=== PATIENT | female | born 1965 | race Caucasian/White ===

== ENCOUNTER 2018-02-13 13:30 | Outpatient (RCR) | payer MEDICAID, SELFPAY ==
--- NOTE | 2017-11-22 14:55 | HP.PTEVAL_ITS ---
Patient's Visit Information DESTINEE MORENO is a 52 year old F referred to Physical Therapy by MD LEONORA Willard with a diagnosis of R UE weakness and instability.. Date of Evaluation: 11/22/17 Physical Therapist: WANDY ReyesT, OC - Visit Plan Frequency: 2x /Week Duration: 4-6 Weeks Plan: 2x/week for 4-8 weeks. 1. Balance with gait including bend and recover, VOR standing to ambulation, foam, narrow GERONIMO adn ec balance ex. Pt balance very poor and will need full spot during these activities. Please include LE and postural/ UE strength in treatment. strength in treatment. - Subjective Subjective: Trouble walking, sometimes walks crooked into a wall. has MS and has had therapy in [place]. Bending and recovering makes her unsteady. Been that way for years. Moved to [place] a year ago upon getting . Falls intermittently two times last month. Gets unsteady without spinning and falls. Was walking on slope both times.Feels unsteady at home in the dark but not in the light. Fatigue makes it worse. Also has R arm weakness and had nerve test which was normal. Reaching up to get bowl down and nearly dropped it. Is R handed.Gets numbness in R distal arm interittently and both legs and feet. Sleep is OK. Does not work, is on disability from MS. Anxiety and depression also. Exercises: has started 3# hand weight and stationary pedal bike. Dresses and cooks and cleans without incident but avoids step stools and balance worse when tired. Enjoys french whcih she can do but arm bothers her if she does too much. - Pain R arm pain Pain Intensity (Out of 10): 0 Pain Intensity Range: 0, 4 - Objective Pt has flat affect and stoic. Ambulates I on firm flat surface back to PT slowly. Trasnfers to and fro sit I but needs UE to avoid falling back into chair. Supine to sit I. Steps require rail and can be done reciprocally. VOR is challenging sitting and standing and cannot walk and do it, eyes come off target. Romberg stance is hard for more than 8 sec, not able EC and foam NT today. Strength LE is cogwheel at knees ext 3+, knee flexion weak at 3/5, hips 3+ flexion and ankles 4-. AROM LE WFL, HS and gastroc and hip flexors mod tight. reflexes LE 2/3 patella and achilles. Sensation WNL to gross light touch in LE adn UE. Coordination to reciprocal tapping is very poor. UE strength is symmetrical and withour myuotomal abnormalities at 3+. bi and tri reflexes 2/3. AROM UE WFL. Unable to bend BW without falling over, bending forward and also fall forward. - Balance Scores Functional Gait Assessment Score: 14 % Disability: 53.3400 - Goals Goal 1:: FGA balance to minimize fall risk. Goal Time Frame: 4-6 Weeks Goal 2:: Strength 4- in LE and I approp HEP Goal Time Frame: 4-6 Weeks Goal 3:: bend backwards adn forward without falling over. Goal Time Frame: 4-6 Weeks - Rehabilitation Potential Physical Therapy Diagnosis: Imbalanced and weak Rehabilitation Potential: Fair - Anticipated Interventions Patient/Client Instruction: Educate patient on: Condition, Plan of Care For the Purpose of:: To improve balance, To improve safety Therapeutic Exercise to Include: Strength training, Balance training For the Purpose of:: To improve muscle performance and motor function, To improve balance, To improve safety Thank you for the opportunity to evaluate your patient. For Medicare and Medicare HMO plans, please review the plan of care and approve it. It will need to be FAXED BACK to us at [phone] for Medicare purposes. Please let me know if there are questions or concerns regarding this plan of care. Physician Signature: Date:
--- NOTE | 2017-12-20 15:27 | HP.PTREVAL_ITS ---
Chaz Milian MD, JBJEAN CARLOS It has been my pleasure to treat DESTINEE MORENO over the last 10 visits for R UE weakness and instability.. Please see the progress note below for an update on the physical therapy plan of care! Subjective: Getting better. A little stronger. Balance is still a little shaky. No falls lately. Fels like she can work on things at home. Bending down to get something is still feeling like she will fall but she does this and has not fallen. To Dr. Milian will call to set up. Uses cane when she feels like she might stumble, 50% of time. Does grab [place] otherwise or use . Objective/Function: Bending BW causes patient to stumble backwards, bending forwards is safer but slow and needs CGA. Vor is not happening, pt unable to turn head with eyes on target especially worse to the L. Out of chair without using UE easily. Steps reciprocal with one rail. FGA 2 point IMPROVED. FUNCTIONAL STRENGTH IMPROVING, BALANCE STILL QUESTIONABLE AT BEST. oCULOMOTOR DEFICITS ARE OBVIOUS AND NEED WORKED ON. Plan Plan: PT FINALLY AGREEABLE TO CONTINUING WEEKLY TO [place] ON ADAPTATION AND HABITUATION/BALANCE EX VIA HEP. WILL CONTINUE STRENGTH AT HOME. NEXT VISIT CHECK VOR AND ADD COUNTER TOP HEAD BENDING TO HEP, MAY NEED TO CHECK MSQ. Goals Goal 1:: FGA balance to minimize fall risk. Goal Time Frame: 4-6 Weeks Goal Progress: Progressing Goal 2:: Strength 4- in LE and I approp HEP Goal Time Frame: 4-6 Weeks Goal Progress: Goal Met Goal 3:: bend backwards adn forward without falling over. Goal Time Frame: 4-6 Weeks Goal Progress: Progressing Goal 4:: VOR 60 seconds without deficits. Goal Time Frame: 2-4 Weeks Goal Progress: NEW GOAL Anticipated Interventions Patient/Client Instruction: Educate patient on: Condition, Plan of Care For the Purpose of:: To improve balance, To improve safety Therapeutic Exercise to Include: Strength training, Balance training For the Purpose of:: To improve muscle performance and motor function, To improve balance, To improve safety Please do not hesitate to contact me at [phone] by phone or Fax: if you have questions or concerns regarding this new plan of care! Sincerely, Anam Noonan, DPT, OC
--- NOTE | 2018-01-16 12:01 | HP.PTREVAL_ITS ---
Chaz Milian MD, It has been my pleasure to treat DESTINEE MORENO over the last 14 visits for R UE weakness and instability.. Please see the progress note below for an update on the physical therapy plan of care! Subjective: Not feeling dizzy. Doing OK overall but eyes closed is tough. Using cane 100%(push cart in store). Objective/Function: Much imporved(+7) FGA) Still challenging to walk with VOR as she veers quickly. VOR standing taught to patient for HEP by counter only. looks up and bends over without losing balacne today. Bending backwards still a challenge baalnce christian. Up and down VOR still more challenging then horiz. Plan Plan: weekly for VOR and ec walking chalolenges and EIS for balance. Goals Goal 1:: FGA balance to minimize fall risk. Goal Time Frame: 4-6 Weeks Goal Progress: Goal Met Goal 2:: Strength 4- in LE and I approp HEP Goal Time Frame: 4-6 Weeks Goal Progress: Goal Met Goal 3:: bend backwards adn forward without falling over. Goal Time Frame: 4-6 Weeks Goal Progress: Goal Met Goal 4:: VOR 60 seconds without deficits. Goal Time Frame: 2-4 Weeks Goal Progress: Goal Met Goal 5:: Walk VOR without wobbly and 25/30 FGA Goal Time Frame: 2-4 Weeks Goal Progress: NEW GOAL Goal 6:: Bend backwards without losing balance Goal Time Frame: 2-4 Weeks Goal Progress: NEW GOAL Anticipated Interventions Patient/Client Instruction: Educate patient on: Condition, Plan of Care For the Purpose of:: To improve balance, To improve safety Therapeutic Exercise to Include: Strength training, Balance training For the Purpose of:: To improve muscle performance and motor function, To improve balance, To improve safety Please do not hesitate to contact me at [phone] by phone or Fax: if you have questions or concerns regarding this new plan of care! Sincerely, Anam Noonan, DPT, OC
--- NOTE | 2018-02-13 13:45 | HP.PTDCSUM_ITS ---
HP - PT D/C Summary It has been my pleasure to treat DESTINEE MORENO under orders from Chaz Milian MD, for the diagnosis of R UE weakness and instability. for a total of 17 visit( s). Discharge Date: 02/13/18 Please see the following information for a summary of their discharge status. - Subjective Subjective: Doing well, ready to be done. Bending BW can still be a problem but everything else feels OK. Looking up and bending over are much better. Gets uneasy looking up. Walking dog at times without cane, But i should use it. Needs cane to walk on grass. HEP going OK. To doctor in April. Ready to be done. No spinning. - Pain R arm pain Pain Intensity (Out of 10): 0 - Overall Improvement % Improvement: 70 - Objective Objective/Function: +4 FGA from last test adn +13 overall. Significantly improved balance. Looks up and bends over without LOB today, stilll LOB with BW bending. still recommended compliance with cane due to MS and some inconsistency with testing btu overall much better and recommeneded continuing HEP for strength as she has been noncompliant lately. - Goals Goal 1:: FGA balance to minimize fall risk. Goal Progress: Goal Met Goal 2:: Strength 4- in LE and I approp HEP Goal Progress: Goal Met Goal 3:: bend backwards adn forward without falling over. Goal Progress: Goal Met Goal 4:: VOR 60 seconds without deficits. Goal Progress: Goal Met Goal 5:: Walk VOR without wobbly and 25/30 FGA Goal Progress: Goal Met Goal 6:: Bend backwards without losing balance Goal Progress: not yet. - Plan Plan: D/C to HEP - D/C Information Discharge Comments: Pt doing well and surpassed improvement expectations. Still recommended use of cane for safety. Pt to try and continue HEP. If there are questions or concerns regarding this patient's physical therapy, please feel free to call me at [phone]. Thank you for the referral of this patient. Sincerely, Anam Noonan, DPT, OC
== END 2018-02-13 19:00 | disposition home or self-care (01) ==
LOC: PT 13:30
PROVIDERS: Visit Provider Psychiatry & Neurology Neurology
DX: G35 Multiple sclerosis (principal); R26.81 Unsteadiness on feet; M62.81 Muscle weakness (generalized); R20.0 Anesthesia of skin
CPT/HCPCS: 97110; 97116; 97162; 97530

== ENCOUNTER 2022-06-27 20:31 | Emergency (ER) | payer MEDICARE, SELFPAY ==
[2022-06-27 20:32] VITALS: BP 130/65; PULSE 66; RESP 18; TEMP 36.7; O2SAT 98; BMI 36.8
[2022-06-27 22:47] VITALS: BP 134/60; PULSE 61; RESP 18; TEMP 37.1; O2SAT 100
--- NOTE | 2022-06-27 23:06 | RAD_ITS ---
INDICATION: cough EXAMINATION/TECHNIQUE: X-RAY - XR Chest 1 View COMPARISON: February 01, 2017. FINDINGS: LINES/DEVICES: None. LUNGS: No consolidation, edema or effusion. No pneumothorax. MEDIASTINUM AND CARDIOVASCULAR STRUCTURES: Cardiac silhouette not enlarged. Mild aortic atherosclerosis. BONES AND SOFT TISSUES: Unremarkable. RAD/Chest 1 View (Portable) IMPRESSION: No radiographic evidence of acute cardiopulmonary disease. Electronically Signed: Lobito Marquez MD at 23:27 EDT ,
--- NOTE | 2022-06-27 23:19 | EKG12_ITS ---
Test Reason : CP Blood Pressure : / mmHG Vent. Rate : 064 BPM Atrial Rate : 064 BPM P-R Int : 160 ms QRS Dur : 102 ms QT Int : 424 ms P-R-T Axes : 022 012 026 degrees QTc Int : 437 ms Normal sinus rhythm Left ventricular hypertrophy with repolarization abnormality Abnormal ECG Confirmed by JOSE EDUARDO TENA, ANTHONY ([id number]), image editor DUSTIN TOMAS ([id number]) on 06/29/2022 11:54:24 AM Referred By: PL Confirmed By:DAYAN WHITT MD
[2022-06-27] MEDS: 0.9% Normal Saline 1,000 ML 999 ML IV (23:28)
[2022-06-27] MEDS: Ondansetron 4 MG/2 ML Vial IV (23:28)
[2022-06-27] MEDS: dexAMETHasone 10 MG/ML Vial IV (23:28)
[2022-06-27 23:38] LABS: Absolute Lymphocyte Count 1.12 X10^3/uL (0.83-4.51); Absolute Neutrophil Count 3.4 X10^3/uL (2.0-7.7); Basophil# 0.03 X10^3/uL; Basophil% 0.5 % (0-1); Eosinophil# 0.01 X10^3/uL; Eosinophils% 0.2 % (0-5); Hematocrit 34.3 % (37-47); Lymphocyte # 1.12 X10^3/ul (0.83-4.51); Lymphocyte % 17.9 % (19-41); Mean Corpuscular Hgb 32.4 pg (27.0-32.0); Mean Corpuscular Volume 92.7 fL (81-99); Mean Platelet Vol. 9.3 fl (6.2-12.0); Monocyte# 1.65 X10^3/uL; Monocyte% 26.4 % (0-10); NRBC Flagged by Analyzer 0 % (0-5); Neutrophil # 3.38 X10^3/uL (2.7-7.7); Neutrophil % 53.9 % (47-70); POSITIVE DIFFERENTIAL YES; Platelet Count 195 K/mm3 (150-450); RBC Distribution Width CV 11.9 % (11.6-14.6); RBC Distribution Width SD 40.6 fl (35.1-43.9); White Blood Count 6.3 K/mm3 (4.4-11.0)
[2022-06-27 23:40] LABS: Differential Indicated SCAN CRITERIA MET
[2022-06-27 23:54] LABS: Anion Gap 9 (5-15); BUN 10 mg/dL (7-18); BUN/Creat Ratio 13.3 RATIO (10-20); Calcium,Total 9.1 mg/dL (8.5-10.1); Chloride 82 mmol/L (98-107); Creatinine, Serum 0.75 mg/dL (0.55-1.02); EST Glomerular Filtration Rate 84 mL/min (>60); Est Glom Filt Rate - Afr Amer 102 mL/min (>60); Estimated Creatinine Clearance 62.45 ml/min; Glucose 82 mg/dL (74-106); Magnesium 1.7 mg/dL (1.6-2.6); Potassium 3.5 mmol/L (3.5-5.1); Sodium Level 121 mmol/L (136-145)
[2022-06-28 00:13] VITALS: BP 126/66; PULSE 61; O2SAT 96
[2022-06-28] MEDS: Ketorolac 30 MG/ML Syringe IV (00:50)
[2022-06-28 01:13] VITALS: BP 134/67; PULSE 67; RESP 18; O2SAT 100
--- NOTE | 2022-06-28 01:13 | EDS_ITS ---
HPI History of Present Illness Chief Complaint: General Illness Narrative Narrative: Patient is a 57-year-old female with past medical history of MS. she states that over the past 2 to 3 days she has developed headache with mild cough subjective fevers and chills myalgias and nausea. She states she took a home COVID test and it was positive. She denies any chest pain or shortness of breath with her history of MS and constellation of symptoms she was concerned and therefore comes in for evaluation [facility] Medical History (Updated 06/28/22 @ 01:[address] Miguel Arguello, DO) Anxiety Depression GERD (gastroesophageal reflux disease) Hypertension Migraines Home Medications Omeprazole [Prilosec] 40 mg PO DAILY 02/01/17 [History Last Taken Unknown] bupropion HCl 100 mg tablet 100 mg PO DAILY 02/01/17 [History Last Taken Unknown] clonazepam 0.5 mg tablet 1 mg PO QHS PRN PRN Anxiety 02/01/17 [History Last Taken Unknown] dimethyl fumarate 240 mg capsule,delayed release (Tecfidera) 240 mg PO DAILY 02/01/17 [History Last Taken Unknown] gabapentin 100 mg capsule (Neurontin) 100 mg PO BID 02/01/17 [History Last Taken Unknown] gabapentin 300 mg capsule 300 mg PO QHS 02/01/17 [History Last Taken Unknown] lisinopril 30 mg tablet (Zestril) 30 mg PO DAILY 02/01/17 [History Last Taken Unknown] metoprolol tartrate 50 mg tablet 50 mg PO BID 02/01/17 [History Last Taken Unknown] tamsulosin 0.4 mg capsule 0.4 mg PO DAILY 02/01/17 [History Last Taken Unknown] trazodone 100 mg tablet 100 mg PO QHS 02/01/17 [History Last Taken Unknown] venlafaxine 150 mg tablet,extended release 24 hr 150 mg PO DAILY 02/01/17 [History Last Taken Unknown] nirmatrelvir 300 mg (150 mg x2)-ritonavir 100 mg tablet,dose pack(EUA) (Paxlovid) See Rx Instructions PO .COMPLEX #30 tabs 06/28/22 [Rx Last Taken Unknown] ondansetron 4 mg disintegrating tablet 4 mg PO TID PRN nausea and vomiting #21 tabs 06/28/22 [Rx Last Taken Unknown] promethazine 6.25 mg-codeine 10 mg/5 mL syrup 5 ml PO 4X/DAY PRN PRN cough 7 days #140 mL 06/28/22 [Rx Last Taken Unknown] Allergy/AdvReac Type Severity Reaction Status Date / Time cephalexin [From Keflex] Allergy Itching Verified 02/04/17 10:29 Surgical History (Updated 06/27/22 @ 22:45 by Lucrecia Syed Self) History of cholecystectomy Social History Smoking Status: Never smoker ROS ROS ED Constitutional Constitutional ED: Reports chills, fever(s) and subjective ENT ENT ED: Reports rhinorrhea and sore throat Cardiovascular Cardiovascular: Denies chest pain Respiratory/Chest Respiratory/Chest: Reports cough; Denies dyspnea Gastrointestinal Gastrointestinal: Reports nausea; Denies abdominal pain, diarrhea or vomiting Genitourinary Genitourinary ED: Denies dysuria Musculoskeletal Musculoskeletal: Reports myalgias Integumentary Denies rash Neurologic Neurologic: Reports headache(s) Hematologic/Lymphatic Hematologic/Lymphatic: Denies easy bleeding or easy bruising EXAM Physical Exam Const Vital Signs: 06/27/22 20:32 06/27/22 22:45 06/27/22 22:47 Temperature 98.1 F 98.7 F Temperature Source Temporal Oral Pulse Rate 66 61 Respiratory Rate 18 18 Respiratory Effort Normal Non-Labored Respiratory Pattern Normal Blood Pressure 130/65 H 134/60 H Blood Pressure Mean 86 84 Pulse Ox 98 100 Oxygen Delivery Method Room Air Room Air 06/28/22 00:13 06/28/22 01:13 Temperature Temperature Source Pulse Rate 61 67 Respiratory Rate 18 Respiratory Effort Respiratory Pattern Blood Pressure 126/66 H 134/67 H Blood Pressure Mean 86 89 Pulse Ox 96 100 Oxygen Delivery Method Room Air Room Air Positive well nourished, well developed and obese General Appearance ED: well developed Nutritional Appearance: obese HEENT Reports dry mucous membranes HEENT Narrative: Cobblestoning the posterior pharynx consistent with sinus drainage but no airway edema or compromise Mouth ED: Yes dry mucous membranes Mouth: dry mucous membranes Eyes PERRL and EOMs intact bilaterally Neck supple and no JVD Neck Narrative: Positive anterior cervical lymphadenopathy Resp normal respiratory effort and clear to auscultation bilaterally Resp Narrative: Breath sounds are diminished throughout but overall clear to auscultation without signs of respiratory distress Cardio regular rate and regular rhythm Rate: other Other Details: Radial pulses are +2-4 bilaterally are equal and symmetric GI non-tender and non-distended GI Narrative: No voluntary guarding or rigidity no pulsatile mass Auscultation: hyperactive bowel sounds Palpation: soft Extremity normal to inspection Extremity Narrative: No asymmetric edema no pitting edema negative Homans' sign bilaterally Neuro oriented x3 and CN's II-XII intact bilaterally Sensorium / Orientation: alert Psych Psych Narrative: Patient has a flat affect Skin no rashes or lesions noted Skin Narrative: Skin turgor slightly increased MDM MDM MDM Narrative Medical decision making narrative: Patient presented to the ER afebrile and satting in the high 90s on room air with no signs of distress. Her constellation of symptoms is consistent with her reported COVID diagnosis. As she has had bouts of nausea with poor oral intake basic labs were obtained and a chest x-ray was ordered as well. Labs show hyponatremia with a sodium of 121 but otherwise stable electrolytes and normal kidney function. Chest x-ray revealed no acute lung pathology with correlates with her physical exam and stable pulse ox. Patient was given Decadron and a liter of fluid and Zofran and had no bouts of vomiting while in the ER. Her vitals remained stable and on reevaluation she is resting comfortably and remains in no acute respiratory distress. Therefore at this time she is not hypoxic or requiring supplemental oxygen she does have hyponatremia but she has had this replaced with a liter of fluid and therefore do not feel there is need for admission secondary to this. Patient will be started on cough suppressant medication as well as Paxlovid secondary to COVID diagnosis but as she is not hypoxic or showing signs of acute kidney injury she is otherwise safe for discharge Lab Data Attestation: I reviewed the patient's lab results. Labs: Laboratory Results - last 24 hr 06/27/22 06/27/22 23:31 23:31 WBC 6.3 RBC 3.70 L Hgb 12.0 Hct 34.3 L MCV 92.7 MCH 32.4 H MCHC 35.0 RDW Std Deviation 40.6 RDW Coeff of Sia 11.9 Plt Count 195 MPV 9.3 Immature Gran % (Auto) 1.100 H Neut % (Auto) 53.9 Lymph % (Auto) 17.9 L [place] % (Auto) 26.4 H Eos % (Auto) 0.2 Baso % (Auto) 0.5 Absolute Neuts (auto) 3.4 Absolute Lymphs (auto) 1.12 Nucleated RBC % 0 Sodium 121 L Potassium 3.5 Chloride 82 L Carbon Dioxide 30.0 Anion Gap 9 BUN 10 Creatinine 0.75 Estim Creat Clear Calc 62.45 Est GFR (MDRD) Af Amer 102 Est GFR (MDRD) Non-Af 84 BUN/Creatinine Ratio 13.3 Glucose 82 Calcium 9.1 Magnesium 1.7 Radiography Diagnostic Testing: Clinical Impression(s) from Imaging Studies Chest X-Ray 06/27/22 23:06 IMPRESSION: No radiographic evidence of acute cardiopulmonary disease. Electronically Signed: Lobito Marquez MD at 23:27 EDT , 1 view chest x-ray as interpreted by the emergency medicine physician reveals no acute infiltrate pneumothorax or pleural effusion Discharge Plan Triage Chief Complaint: General Illness ED Provider: Miguel Arguello Dx/Rx/DC Orders Clinical Impression: COVID-19, Dehydration with hyponatremia Instructions: Coronavirus Disease 2019 (COVID-19): Caring for Yourself or Others, Dehydration Prescriptions: New Paxlovid (EUA) 300 mg (150 mg x 2)-100 mg tablets,dose pack See Rx Instructions .ROUTE .COMPLEX Qty: 30 0RF Rx Instructions: take TWO 150 mg tablets of nirmatrelvir with ONE 100 mg tablet of ritonavir twice daily for 5 days ondansetron 4 mg tablet,disintegrating 4 mg PO TID PRN (Reason: nausea and vomiting) Qty: 21 0RF promethazine-codeine 6.25-10 mg/5 mL syrup 5 ml PO 4X/DAY PRN PRN (Reason: cough) 7 Days Qty: 140 0RF No Action clonazepam 0.5 MG tablet 1 mg PO QHS PRN PRN (Reason: Anxiety) bupropion HCl 100 MG tablet 100 mg PO DAILY tamsulosin 0.4 MG capsule 0.4 mg PO DAILY trazodone 100 MG tablet 100 mg PO QHS metoprolol tartrate 50 MG tablet 50 mg PO BID lisinopril [Zestril] 30 MG tablet 30 mg PO DAILY gabapentin 300 MG capsule 300 mg PO QHS gabapentin [Neurontin] 100 MG capsule 100 mg PO BID venlafaxine 150 MG tablet extended release 24hr 150 mg PO DAILY dimethyl fumarate [Tecfidera] 240 MG capsule,delayed release(DR/EC) 240 mg PO DAILY Omeprazole [Prilosec] 40 MG capsule 40 mg PO DAILY Primary Care Provider: Zainab Zazueta Referrals: Zainab Zazueta, [Primary Care Provider] - Activity Restrictions/Additional Instructions: Please keep yourself well-hydrated and take your medications as directed to help control your symptoms. Please return to the ER should you have any further concerns Disposition Disposition: Home, Self Care Discharge Date/Time: 06/28/22 01:20
== END 2022-06-28 01:20 | disposition home or self-care (01) ==
PROVIDERS: Emergency Provider Emergency Medicine; Visit Provider Emergency Medicine
DX: U07.1 COVID-19 (principal); G35 Multiple sclerosis; E86.0 Dehydration; I10 Essential (primary) hypertension; E87.1 Hypo-osmolality and hyponatremia; G43.909 Migraine, unspecified, not intractable, without status migrainosus; K21.9 Gastro-esophageal reflux disease without esophagitis; F32.A Depression, unspecified; F41.9 Anxiety disorder, unspecified; E66.9 Obesity, unspecified; Z79.899 Other long term (current) drug therapy
CPT/HCPCS: 71045; 80048; 83735; 85025; 93005; 96361; 96374; 96375; 99283; J7030; A4216; J2405

== ENCOUNTER 2022-07-05 16:36 | Emergency (ER) | payer MEDICARE, SELFPAY ==
[2022-07-05 16:36] VITALS: BP 105/54; PULSE 64; RESP 18; TEMP 36.4; O2SAT 100; BMI 35.6
--- NOTE | 2022-07-05 17:32 | ED.RN ---
PATIENT UP TO TRIAGE DESK AND STATES SHE IS NOT GOING TO WAIT TO BE SEEN. PATIENT STATES SHE WILL CONTINUE TO TRY AND URINATE AND RETURN IF SHE IS UNABLE TO LATER.
== END 2022-07-05 17:25 | disposition left against medical advice (07) ==
LOC: ED 17:38
DX: R33.9 Retention of urine, unspecified (principal); Z53.21 Procedure and treatment not carried out due to patient leaving prior to being seen by health care provider
CPT/HCPCS: 99281

== ENCOUNTER → 2024-02-05 | Outpatient (CLI) | payer MEDICARE, SELFPAY ==
--- NOTE | 2024-02-05 13:41 | NEURO ---
NCS and/or EMG Patient Report Ordering Doctor: Enrrique Langston DATE OF SERVICE: 02/05/24 Kisha presents for electrodiagnostic testing of the lower limbs. She has complaints of bilateral foot pain and intermittent numbness. Electrodiagnostic findings: Right median motor nerve demonstrates normal distal latency, amplitude and conduction velocity. No significant drop in conduction is noted across the fibular head. Right tibial motor nerve demonstrates normal distal latency amplitude and conduction velocity. F waves and H-reflexes are noted. There is prolonged right sural latency. Normal right superficial peroneal and right medial plantar responses. Needle EMG testing was performed in the right lower limb. All muscles tested showed no evidence of denervation with normal motor unit action potentials. The patient refused testing of the left lower limb due to discomfort related to the test. Electrodiagnostic impression: This is an abnormal study in the right lower limb. 1. 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 Would recommend future correlation with the left lower limb to better evaluate for peripheral polyneuropathy. 2. No electrodiagnostic evidence is noted for lumbosacral radiculopathy, as it pertains to the right side. Multi Select Codes Neurology Neurology Interp Codes: 70089-43 Musc test done w/n test comp (interp) and 98514-95 Nrv cndj test 7-8 studies (interp)
== END | disposition home or self-care (01) ==
PROVIDERS: Referring Provider Podiatrist; Visit Provider Podiatrist
DX: R20.2 Paresthesia of skin (principal)
CPT/HCPCS: 95886; 95910

== ENCOUNTER → 2024-02-11 | Outpatient (CLI) | payer MEDICARE, SELFPAY ==
--- NOTE | 2024-02-11 12:18 | RAD_ITS ---
INDICATION: R20.2 EXAMINATION/TECHNIQUE: X-RAY - XR Spine Lumbar Min 4 Views COMPARISON: No relevant prior comparison study available FINDINGS: VERTEBRAE: Preserved vertebral body height. No fracture. No spondylolisthesis. Preservation of the normal lumbar lordosis. No significant facet arthropathy. DISCS: Disc spaces are maintained. Mild endplate osteophytes throughout the lumbar spine. INCLUDED ABDOMEN: Included bowel gas pattern is non-obstructive. RAD/L/S Spine Min 4 Views IMPRESSION: No evidence of lumbar spinal fracture or spondylolisthesis. Mild degenerative changes. Electronically Signed: Andrez Hubbard MD at 13:23 EDT ,
== END | disposition home or self-care (01) ==
LOC: RAD 12:12
PROVIDERS: Referring Provider Podiatrist; Visit Provider Podiatrist
DX: R20.2 Paresthesia of skin (principal)
CPT/HCPCS: 72110

== ENCOUNTER 2025-01-07 14:02 | Emergency (ER) | payer MEDICARE, SELFPAY ==
[2025-01-07 14:04] VITALS: BP 129/63; PULSE 68; RESP 15; TEMP 36.8; O2SAT 98; BMI 34.9
--- NOTE | 2025-01-07 14:24 | EDS_ITS ---
HPI History of Present Illness Chief Complaint: Cold Sx Informant: patient Onset/Context/Timing Onset: Days Context: Gradual Onset Timing: Continuous Quality: Cannot catch my breath Location: Chest Worsened by: Exertion Relieved by: Rest Narrative Narrative: Patient presents with shortness of breath that has been doing worse over the past several days. Patient states it is gradually getting worse. Patient states she feels like she cannot catch her breath. Patient states her breathing is worse with any exertion. Patient states it is better with rest. Patient states she took a home COVID-19 test today and it was positive. Patient admits to some rhinorrhea and sore throat. Patient admits to a cough but denies any sputum production. Patient also admits to some diarrhea. Patient denies any fevers or chills. Patient denies any chest pain. [facility] Medical History (Updated 01/07/25 @ 16:[address] Anam Gardner, DO) Multiple sclerosis Anxiety Depression GERD (gastroesophageal reflux disease) Hypertension Migraines Home Medications ?Medication ?Instructions ?Recorded ?Last Taken ?Type Omeprazole [Prilosec] 40 mg PO DAILY 02/01/17 Unkn own History bupropion HCl 100 mg tablet 100 mg PO DAILY 02/01/17 U nknown History clonazepam 0.5 mg tablet 1 mg PO QHS PRN PRN Anxiety 02/01/17 Unknown History dimethyl fumarate 240 mg 240 mg PO DAILY 02/01/17 Unk nown History capsule,delayed release (Tecfidera) gabapentin 100 mg capsule 100 mg PO BID 02/01/17 Unkno wn History (Neurontin) gabapentin 300 mg capsule 300 mg PO QHS 02/01/17 Unkno wn History lisinopril 30 mg tablet (Zestril) 30 mg PO DAILY 02/01 Unknown History metoprolol tartrate 50 mg tablet 50 mg PO BID 02/01/17 Unknown History tamsulosin 0.4 mg capsule 0.4 mg PO DAILY 02/01/17 Unk nown History trazodone 100 mg tablet 100 mg PO QHS 02/01/17 Unkno wn History venlafaxine 150 mg tablet,extended 150 mg PO DAILY Unknown History release 24 hr ondansetron 4 mg disintegrating 4 mg PO TID PRN nausea and 06/28/22 Unknown Rx tablet vomiting #21 tabs promethazine 6.25 mg-codeine 10 5 ml PO 4X/DAY PRN PRN cough 7 06/28/22 Unknown Rx mg/5 mL syrup days #140 mL nirmatrelvir 300 mg (150 mg See Rx Instructions PO .[place] MPLEX 01/07/25 Unknown Rx x2)-ritonavir 100 mg tablet,dose #30 tabs
--- NOTE | 2025-01-07 14:24 | EX.ED.DYSGE1 ---
HPI History of Present Illness Chief Complaint: Cold Sx Informant: patient Onset/Context/Timing Onset: Days Context: Gradual Onset Timing: Continuous Quality: Cannot catch my breath Location: Chest Worsened by: Exertion Relieved by: Rest Narrative Narrative: Patient presents with shortness of breath that has been doing worse over the past several days. Patient states it is gradually getting worse. Patient states she feels like she cannot catch her breath. Patient states her breathing is worse with any exertion. Patient states it is better with rest. Patient states she took a home COVID-19 test today and it was positive. Patient admits to some rhinorrhea and sore throat. Patient admits to a cough but denies any sputum production. Patient also admits to some diarrhea. Patient denies any fevers or chills. Patient denies any chest pain. [facility] Medical History (Updated 01/07/25 @ 16:[address] Anam Gardner, DO) Multiple sclerosis Anxiety Depression GERD (gastroesophageal reflux disease) Hypertension Migraines Home Medications ?Medication ?Instructions ?Recorded ?Last Taken ?Type Omeprazole [Prilosec] 40 mg PO DAILY 02/01/17 Unknown History bupropion HCl 100 mg tablet 100 mg PO DAILY 02/01/17 Unknown History clonazepam 0.5 mg tablet 1 mg PO QHS PRN PRN Anxiety 02/01/17 Unknown History dimethyl fumarate 240 mg 240 mg PO DAILY 02/01/17 Unknown History capsule,delayed release (Tecfidera) gabapentin 100 mg capsule 100 mg PO BID 02/01/17 Unknown History (Neurontin) gabapentin 300 mg capsule 300 mg PO QHS 02/01/17 Unknown History lisinopril 30 mg tablet (Zestril) 30 mg PO DAILY 02/01/17 Unknown History metoprolol tartrate 50 mg tablet 50 mg PO BID 02/01/17 Unknown History tamsulosin 0.4 mg capsule 0.4 mg PO DAILY 02/01/17 Unknown History trazodone 100 mg tablet 100 mg PO QHS 02/01/17 Unknown History venlafaxine 150 mg tablet,extended 150 mg PO DAILY 02/01/17 Unknown History release 24 hr ondansetron 4 mg disintegrating 4 mg PO TID PRN nausea and 06/28/22 Unknown Rx tablet vomiting #21 tabs promethazine 6.25 mg-codeine 10 5 ml PO 4X/DAY PRN PRN cough 7 06/28/22 Unknown Rx mg/5 mL syrup days #140 mL nirmatrelvir 300 mg (150 mg See Rx Instructions PO .COMPLEX 01/07/25 Unknown Rx x2)-ritonavir 100 mg tablet,dose #30 tabs pack Allergy/AdvReac Type Severity Reaction Status Date / Time cephalexin (From Keflex) Allergy Itching Verified 01/07/25 14:06 Surgical History History of total right knee replacement History of cholecystectomy Social History Smoking Status: Never smoker ROS ROS ED Constitutional Constitutional ED: Denies chills or fever(s) Eyes Eyes: Denies blurry vision or change in vision ENT ENT ED: Reports rhinorrhea and sore throat Cardiovascular Cardiovascular: Denies chest pain or palpitations Respiratory/Chest Respiratory/Chest: Reports cough and dyspnea Gastrointestinal Gastrointestinal: Reports diarrhea; Denies nausea or vomiting Genitourinary Genitourinary ED: Denies dysuria or hematuria Musculoskeletal Musculoskeletal: Denies back pain or neck pain Integumentary Denies abscess or rash Neurologic Neurologic: Denies headache(s) or weakness Allergic/Immunologic Allergic/Immunologic ED: Denies mouth swelling or urticaria EXAM Physical Exam Const Vital Signs: 01/07/25 14:04 01/07/25 14:30 01/07/25 15:05 Temperature 98.2 F Temperature Source Temporal Pulse Rate 68 68 65 Respiratory Rate 15 12 17 Respiratory Effort Respiratory Pattern Normal Blood Pressure 129/63 H 135/74 H Blood Pressure Mean 85 90 Pulse Ox 98 97 Oxygen Delivery Method Room Air 01/07/25 15:30 01/07/25 15:47 Temperature Temperature Source Pulse Rate 63 Respiratory Rate 12 Respiratory Effort Normal Non-Labored Respiratory Pattern Normal Blood Pressure 136/70 H Blood Pressure Mean 90 Pulse Ox 96 Oxygen Delivery Method Positive well nourished and well developed General Appearance ED: well developed and NAD HEENT Reports moist mucous membranes Neck supple and no JVD Resp clear to auscultation bilaterally Auscultation: diminished lung sounds diffuse Cardio regular rate and regular rhythm GI non-tender and non-distended Palpation: soft Neuro oriented x3, CN's II-XII intact bilaterally and no sensory deficits noted Sensorium / Orientation: alert Motor Exam: strength 5/5 throughout Psych mental status grossly normal MDM MDM MDM Narrative Medical decision making narrative: Differential diagnosis includes COVID-19, pneumonia, bronchitis, and other viral illness. Chest x-ray will be obtained to assess for pneumonia and pneumothorax. Radiography Chest X-Ray - ED: 2 View, Read by ED Physician, Read by Radiologist and No Acute Disease Diagnostic Testing: Clinical Impression(s) from Imaging Studies Chest X-Ray 01/07/25 15:20 IMPRESSION: No acute abnormality is seen. Reading Location: [facility] and lateral chest x-ray was obtained. There are 2 views. On my independent interpretation, lung yañez are clear. There is normal cardiac silhouette. Bony thorax is normal. There is no acute process noted. Radiologist also interpreted the x-ray and agrees. Treatment and Re-Evaluation :: Patient was given a DuoNeb aerosol here. Patient was advised that symptoms are most likely from COVID-19. Patient was instructed to drink plenty of fluids. Patient was instructed to take Tylenol or ibuprofen as needed for any pain or fevers. Patient was given a prescription for Paxlovid since her symptoms have been within the last 5 days and she has a history of MS. Patient was instructed to follow-up with her primary care physician in 5 to 7 days. Patient was instructed return if worse in any way. Patient understood and was agreeable with the plan. All questions were answered. Discharge Plan Triage Chief Complaint: Cold Sx ED Provider: Anam Gardner Dx/Rx/DC Orders Clinical Impression: COVID-19, Multiple sclerosis Instructions: Coronavirus Disease 2019 (COVID-19): Caring for Yourself or Others Prescriptions: Continued nirmatrelvir-ritonavir 300 mg (150 mg x 2)-100 mg tablets,dose pack See Rx Instructions .ROUTE .COMPLEX Qty: 30 0RF Rx Instructions: take TWO 150 mg tablets of nirmatrelvir with ONE 100 mg tablet of ritonavir twice daily for 5 days No Action clonazepam 0.5 MG tablet 1 mg PO QHS PRN PRN (Reason: Anxiety) bupropion HCl 100 MG tablet 100 mg PO DAILY tamsulosin 0.4 MG capsule 0.4 mg PO DAILY trazodone 100 MG tablet 100 mg PO QHS metoprolol tartrate 50 MG tablet 50 mg PO BID lisinopril [Zestril] 30 MG tablet 30 mg PO DAILY gabapentin 300 MG capsule 300 mg PO QHS gabapentin [Neurontin] 100 MG capsule 100 mg PO BID venlafaxine 150 MG tablet extended release 24hr 150 mg PO DAILY dimethyl fumarate [Tecfidera] 240 MG capsule,delayed release(DR/EC) 240 mg PO DAILY Omeprazole [Prilosec] 40 MG capsule 40 mg PO DAILY ondansetron 4 mg tablet,disintegrating 4 mg PO TID PRN (Reason: nausea and vomiting) Qty: 21 0RF promethazine-codeine 6.25-10 mg/5 mL syrup 5 ml PO 4X/DAY PRN PRN (Reason: cough) 7 Days Qty: 140 0RF Primary Care Provider: Zainab Zazueta Referrals: Zainab Zazueta, [Primary Care Provider] - 5-7 Days Print Language: Angolan Disposition Disposition: Home, Self Care
[2025-01-07 14:30] VITALS: BP 135/74; PULSE 68; RESP 12; O2SAT 97
[2025-01-07] MEDS: Ipratropium/Albuterol Sulfate 3 ML AMPUL.NEB INHALATION (15:01)
[2025-01-07 15:05] VITALS: PULSE 65; RESP 17
--- NOTE | 2025-01-07 15:20 | RAD_ITS ---
PROCEDURE: CHEST PA AND LATERAL 01/07/2025 REASON FOR EXAM: DYSPNEA Patient is positive for COVID. TECHNIQUE: PA and lateral chest radiographs were obtained. FINDINGS: The heart is not enlarged. The lungs are clear. No focal infiltrate is seen. Line calcification of the aortic arch. Multilevel degenerative changes of the thoracic spine. RAD/Chest PA and Lateral IMPRESSION: No acute abnormality is seen. Reading Location: [facility]
[2025-01-07 15:30] VITALS: BP 136/70; PULSE 63; RESP 12; O2SAT 96
[2025-01-07 16:36] VITALS: BP 142/72; PULSE 65; RESP 18; TEMP 36.1; O2SAT 95
== END 2025-01-07 16:37 | disposition home or self-care (01) ==
PROVIDERS: Emergency Provider Emergency Medicine; Referring Provider Emergency Medicine; Visit Provider Emergency Medicine
DX: U07.1 COVID-19 (principal); G35 Multiple sclerosis; I10 Essential (primary) hypertension; R06.02 Shortness of breath; K21.9 Gastro-esophageal reflux disease without esophagitis; F41.9 Anxiety disorder, unspecified; F32.A Depression, unspecified; Z79.899 Other long term (current) drug therapy; Z96.651 Presence of right artificial knee joint; Z90.49 Acquired absence of other specified parts of digestive tract
CPT/HCPCS: 71046; 94640; 99282

== ENCOUNTER → 2025-08-31 | Outpatient (CLI) | payer MEDICARE, SELFPAY ==
--- NOTE | 2025-08-31 13:47 | US_ITS ---
PROCEDURE: KIDNEY AND BLADDER 08/31/2025 REASON FOR EXAM: STRAINING TO VOID TECHNIQUE: Procedure Code: USKI Modality: US Procedure: KIDNEY AND BLADDER COMPARISON: none FINDINGS: Right kidney measures 10.2 Cm and left kidney measures 9.7 Cm. Normal echotexture of bilateral kidneys. No hydronephrosis. No renal stones. Urinary bladder is distended with post void residual of 368 ml. US/Kidney and Bladder IMPRESSION: Urinary retention with post void residual of 368ml. No hydronephrosis. Reading Location: [facility]
== END | disposition home or self-care (01) ==
LOC: US 13:45
PROVIDERS: Referring Provider Urology; Visit Provider Urology
DX: R39.16 Straining to void (principal)
CPT/HCPCS: 76770